=== PATIENT | female | born 1960 | race Caucasian/White ===

== ENCOUNTER → 2016-11-15 | Outpatient (CLI) | payer MEDICARE ==
[~2016-11-15] MED LIST: ALPRAZOLAM ODT1 MG PO; ALPRAZOLAM PO; ATENOLOL PO; BAYER CHEWABLE81 MG PO; CHLORTHALIDONE25 MG PO; CIPRO PO; COZAAR100 MG PO; DAPSONE25 MG PO; DESYREL100 MG PO; DIFLUCAN PO; DOXYCYCLINE PO; GENVOYA TABLET1 EACH; HYDROCODON-ACE1 EAC5 PO; IMDUR-ER30 M1 PO; KLONOPIN PO; KLONOPIN1 MG PO; LANOXIN125 MC1; LASIX PO; LISINOPRIL PO; PHENERGAN PO; PROTONIX PO; SUSTIVA PO; TAMBOCAR PO; TENORMIN25 MG PO; TRUVADA; VICODIN PO
--- NOTE | ~2016-11-15 | CT98 ---
[facility]. [facility] A Service of [facility] & [facility] RADIOLOGY TEXT RESULTS PATIENT: CLIFF BELTRE LOCATION: [facility] : 56 UNIT #: [id number] AGE: [address]: Barbara Sow MD SEX: F ORDER DR: [id number] [address] [address] [id number] MR#: [id number] Acc #: [id number] NAME: CLIFF BELTRE : 1960 SEX: F STUDY DATE/TIME: 11/15/2016 12:42 UNIT: [facility] ROOM: STUDY DESCRIPTION: CT Lumbar Spine Wo Cont Attending Physician: Barbara Sow M.D. Ordering Physician: Barbara Sow M.D. Primary Care Physician: Barbara Sow M.D. MEDICAL IMAGING REPORT This report is preliminary unless electronic signature is present. EXAM Lumbar spine CT HISTORY Bilateral leg pain for the past 2 months, worse with walking. History of scoliosis. TECHNIQUE Axial imaging was obtained from the lower thoracic spine to the sacrum and evaluated at bone and soft tissue windows with multiplanar reformats. This CT exam was performed with one or more of the following radiation dose reduction techniques: automatic exposure control, adjustment of mA and/or kV according to patient size, and iterative reconstruction. FINDINGS There is a prominent mid lumbar levoscoliosis with a Thorpe angle of 32 degrees. Degenerative changes are seen throughout the lumbar spine most prominent along the inner curvature of the scoliosis on the right at L3-4. At the upper lumbar levels, the canal and foramina are widely patent without significant disc bulging or herniation at T12-L1 and L1-L2. At L2-3 and L3-4, there is broad-based posterior disc bulging with mild central stenosis. It is more prominent at the L3-4 level. At L4-5, there is broad-based posterior disc bulging. Foraminal stenosis is mild on the right and moderate left and central stenosis is moderate. At L5-S1, there is mild broad-based disc bulging with mild bilateral foraminal stenosis. No definite disc herniation is seen. No pars defects or lumbar fractures are noted. Paraspinous structures are remarkable for an IVC filter. A sacral stimulator wire is seen on the left. [facility]. [facility] A Service of [facility] RADIOLOGY TEXT RESULTS PATIENT: CLIFF BELTRE LOCATION: [facility] : 56 UNIT #: [id number] AGE: [address]: Barbara Sow MD SEX: F ORDER DR: PORFIRIO Scoliosis measuring 32 degrees with multilevel degenerative disc disease as described above [id number]. Central stenosis is most prominent at L4-5 where it is present to a moderate degree. Foraminal stenosis is also most predominant at the L4-5 level on the left side. Right-sided foraminal stenosis is most prominent at L3-4. No acute bony abnormalities are seen. Dictated by... Giuseppe Cavazos M.D. THIS IS AN ELECTRONICALLY VERIFIED REPORT Giuseppe Cavazos M.D. at 11/15/2016 4:29 PM ASHLEY/fady TD: 11/15/2016 15:51 JOB #: [id number] MEDICAL IMAGING REPORT Page 1 of 1
== END | disposition home or self-care (01) ==
LOC: SCT 07:19
DX: M54.16 Radiculopathy, lumbar region (principal); M41.9 Scoliosis, unspecified; M48.06 Spinal stenosis, lumbar region; M51.16 Intervertebral disc disorders with radiculopathy, lumbar region
CPT/HCPCS: 72131

== ENCOUNTER → 2017-02-19 | Outpatient (CLI) | payer MEDICARE, OTHER ==
--- NOTE | ~2017-02-19 | MY11 ---
[facility] A Service [facility] RADIOLOGY TEXT RESULTS PATIENT: CLIFF BELTRE LOCATION: [facility] : 56 UNIT #: [id number] AGE: [address]: Barbara Sow MD SEX: F ORDER DR: [id number] [address] [address] [id number] O MR#: [id number] Acc #: [id number] NAME: CLIFF BELTRE : 1960 SEX: F STUDY DATE/TIME: 02/19/2017 10:49 UNIT: [facility] ROOM: STUDY DESCRIPTION: MY Mammogram Screening Dig Akhil Attending Physician: Barbara Sow M.D. Referring Physician: Barbara Sow M.D. Ordering Physician: Barbara Sow M.D. Primary Care Physician: Barbara Sow M.D. MEDICAL IMAGING REPORT This report is preliminary unless electronic signature is present. EXAM Bilateral digital screening mammogram with CAD 02/19/2017 HISTORY Family history of breast cancer in a niece. No personal history of breast cancer or current complaints. COMPARISON Bilateral screening mammogram 09/23/2010 performed at [facility]. FINDINGS This study was originally performed on 02/19/2017. It was submitted for interpretation today, 02/21/2017, after the arrival of outside comparison exam. CC and MLO views were obtained of each breast utilizing digital technique and reviewed with an FDA-approved CAD device. Heterogeneously dense fibroglandular tissue is present bilaterally, which can limit sensitivity of mammography. The parenchymal pattern appears stable. No new or developing nodule or architectural distortion or clustered microcalcification is seen. There is a well circumscribed nodule within the central third of the right breast 12 o'clock axis measuring about 9 mm which is a stable finding from the prior exam, in keeping with benign finding. IMPRESSION BIRADS 2. Benign findings. Routine screening mammogram is recommended in 1 year. [facility] A [facility] RADIOLOGY TEXT RESULTS PATIENT: CLIFF BELTRE LOCATION: [facility] : 56 UNIT #: [id number] AGE: [address]: Barbara Sow MD SEX: F ORDER DR: Patients over the age of 40 are entered into a reminder system with target due date for the next mammogram. A result letter will also be sent to the patient. BIRADS: 2 - Benign finding Dictated by... Dania Oneil M.D. THIS IS AN ELECTRONICALLY VERIFIED REPORT Dania Oneil M.D. at 02/23/2017 9:34 PM Merissa TD: 02/21/2017 16:32 JOB #: [id number] MEDICAL IMAGING REPORT Page 1 of 1
== END | disposition home or self-care (01) ==
LOC: SMAM 10:12
DX: Z12.31 Encounter for screening mammogram for malignant neoplasm of breast (principal); Z80.3 Family history of malignant neoplasm of breast
CPT/HCPCS: G0202